=== PATIENT | female | born 1975 | race African-American/Black ===

== ENCOUNTER 2023-01-16 03:30 | Emergency (ER) | payer MEDICAID ==
[~2023-01-16] VITALS: Ht 157.5 cm; Wt 64.0 kg
[2023-01-16 03:31] VITALS: BP 147/87
[2023-01-16] MEDS ORDERED: CYCLOBENZAPRINE 10MG TABLET PO ONE (05:00)
[2023-01-16] MEDS ORDERED: ACETAMINOPHEN 325MG TABLET PO ONE (05:00)
[2023-01-16] MEDS ORDERED: CYCL5TAB MT (05:47)
[2023-01-16] MEDS ORDERED: ACET-2708 MT (05:47)
== END 2023-01-16 05:55 | disposition home or self-care (01) ==
LOC: ER 03:30
DX: M54.50 Low back pain, unspecified (principal); I10 Essential (primary) hypertension; E11.9 Type 2 diabetes mellitus without complications; J45.909 Unspecified asthma, uncomplicated
CPT/HCPCS: 99283